=== PATIENT | female | born 1960 | race Caucasian/White ===

== ENCOUNTER 2016-10-05 09:04 | Inpatient (IN) | payer MEDICARE, BC ==
[~2016-10-05] VITALS: Ht 170.2 cm; Wt 123.3 kg
[2016-10-05] MEDS ORDERED: VITA100018 PO (09:33)
[2016-10-05] MEDS ORDERED: BOSW5TAB PO (09:33)
[2016-10-05] MEDS ORDERED: VERA1TAB17 PO (09:33)
[2016-10-05] MEDS ORDERED: LOSA100T2 PO (09:33)
[2016-10-05] MEDS ORDERED: GABA300C5 PO (09:33)
[2016-10-05] MEDS ORDERED: ALPR0.25 PO (09:33)
[2016-10-05] MEDS ORDERED: MULT1TAB PO (09:33)
[2016-10-05] MEDS ORDERED: BUPR300T PO (09:33)
[2016-10-13] MEDS ORDERED: GABA300C5 PO (05:43)
[2016-10-13 05:44] VITALS: BP 153/93; PULSE 87; RESP 20; TEMP 98.5; O2SAT 96
[2016-10-13] MEDS ORDERED: TRANEXAMIC ACID IV SCH ×4 (05:45)
[2016-10-13] MEDS ORDERED: ceFAZolin 2 GM PREMIX 50 ML IV SCH (05:45)
[2016-10-13] MEDS ORDERED: SODIUM CHLORIDE 0.9% IV SCH ×4 (05:45)
[2016-10-13] MEDS: EXPAREL PERI-ARTICULAR INJECTION (TOTAL VOL. 100 ML) P-ARTICULR SCH ×4 (05:45→07:28)
[2016-10-13] MEDS: CHLORHEXIDINE GLUCONATE 4% SOLN 120 ML BTL TOP SCH (05:45)
[2016-10-13] MEDS ORDERED: TRANEXAMIC ACID INJ 1,230 MG in SODIUM CHLORIDE 0.9% INJ 100 ML IV SCH (05:49)
[2016-10-13] MEDS: LACTATED RINGER'S 1000 ML IV SCH (05:51)
[2016-10-13] MEDS ORDERED: GENTAMICIN SULFATE 80 MG/2 ML VIAL ONE ×2 (05:56)
[2016-10-13] MEDS ORDERED: METOPROLOL TARTRATE 25 MG TAB PO PRN (06:00)
[2016-10-13] MEDS: TRANEXAMIC ACID INJ 1,230 MG in SODIUM CHLORIDE 0.9% INJ 100 ML IV SCH ×2 (06:00→07:13)
[2016-10-13] MEDS: SODIUM CHLORID 0.9% 500 ML IV SCH ×2 (06:00→22:40)
[2016-10-13] MEDS ORDERED: INSULIN HUMAN REGULAR 1,000 UNITS/10 ML VIAL SQ PRN (06:00)
[2016-10-13] MEDS ORDERED: MIDAZOLAM HCL 5 MG/5 ML VIAL ONE (06:26)
[2016-10-13] MEDS ORDERED: ZOLPIDEM TARTRATE 5 MG TAB PO PRN (07:00)
[2016-10-13] MEDS ORDERED: MORPHINE SULFATE 4 MG/ML INJ IV PUSH PRN (07:00)
[2016-10-13] MEDS ORDERED: TRANEXAMIC ACID INJ 0 MG in SODIUM CHLORIDE 0.9% INJ 100 ML IV SCH (07:00)
[2016-10-13] MEDS ORDERED: ONDANSETRON HCL 4 MG/2 ML VIAL IVP PRN (07:00)
[2016-10-13] MEDS ORDERED: MAGNESIUM HYDROXIDE SUSP 30 ML CUP PO PRN (07:00)
[2016-10-13] MEDS ORDERED: GENTAMICIN SULFATE 80 MG/2 ML VIAL IRRIGATION ONE (07:28)
[2016-10-13] MEDS: VERAPAMIL HCL 240 MG SUSTAINED RELEASE TAB PO SCH (09:00)
[2016-10-13] MEDS: ALPRAZolam 0.25 MG TAB PO SCH (09:00)
[2016-10-13] MEDS ORDERED: NON-FORMULARY DRUG (Losartan-Hydrochlorothiazide 1 TAB) PO SCH (09:00)
[2016-10-13] MEDS: SODIUM CHLORIDE 0.9% FLUSH 5 ML FLUSH IVF SCH ×2 (09:00→23:30)
[2016-10-13] MEDS: MULTIVITAMIN HEMATINIC THERAPEUTIC TAB PO SCH (09:00)
[2016-10-13] MEDS ORDERED: [UNRECOGNIZED DRUG - OTHER] PO SCH (09:00)
[2016-10-13] MEDS ORDERED: PROPOFOL 200 MG/20 ML AMP IV ONE (09:12)
[2016-10-13] MEDS ORDERED: ONDANSETRON HCL 4 MG/2 ML VIAL IV PUSH ONE (09:12)
[2016-10-13] MEDS ORDERED: ePHEDrine/NS 25 MG/5 ML SYR IV ONE (09:12)
[2016-10-13] MEDS ORDERED: Post-op Orders (for Pharmacy) MISC XX ONE (09:45)
[2016-10-13] MEDS ORDERED: fentaNYL CITRATE 250 MCG/5 ML AMP ONE (09:47)
[2016-10-13] MEDS ORDERED: *morphine SULFATE 8 MG/ML PERIprocedure ONLY ONE ×3 (09:48→10:33)
[2016-10-13] MEDS: KETOROLAC TROMETHAMINE 30 MG/ML (IVP) VIAL IVP SCH ×3 (10:00→23:27)
[2016-10-13] MEDS: LACTATED RINGER'S 1000 ML INJ 1,000 ML IV SCH ×2 (10:20→21:30)
--- NOTE | 2016-10-13 10:26 | RADRPT ---
EXAM DATE/TIME: 10/13/2016 09:49 [place] COMPARISON: No previous studies available for comparison. INDICATIONS : Posst op left knee surgery MEDICAL HISTORY : None. SURGICAL HISTORY : None. ENCOUNTER: Initial ACUITY: 1 day PAIN SCORE: Non-responsive. LOCATION: Left knee FINDINGS: Two view examination of the left knee demonstrates no evidence of fracture or dislocation. Left knee arthroplasty. Apparent surgical drain. No hardware loosening. Bony mineralization is normal. The baig prapatellar soft tissues have a normal configuration. CONCLUSION: Left knee arthroplasty. Guido Martin MD on October 13, 2016 at 10:24 Board Certified Radiologist. This report was verified electronically.
[2016-10-13 12:00] VITALS: BP 118/73; PULSE 73; RESP 19; TEMP 97; O2SAT 95
--- NOTE | 2016-10-13 13:43 | PD.CONS ---
HPI Service [facility] Consult Requested By Dr. Navarro Reason for Consult Medical management Primary Care Physician Mauricio Adame M.D. Diagnoses: History of Present Illness This is a very pleasant 48-year-old male with past medical history hypertension , presented to same day surgery for left knee surgery by Dr. Navarro. Patient says her pain is controlled. Chest pain, shortness of breath, nausea, vomiting, diarrhea or constipation. Review of Systems 12 system ROS reviewed and negative except as mentioned in HPI Past Family Social History Allergies: Coded Allergies: Codeine (Unverified Allergy, Severe, CHEST PAIN, 10/13/16) Past Medical History Hypertension Neuropathy OA Past Surgical History Surgery right knee surgery Reported Medications Reported Meds & Active Scripts Active Reported Gabapentin 300 Mg Cap 900 Mg PO HS Osteo Bi-Flex One A Day (Liscsaiot-Rmevuveclbv-Mzzuffa) 1 Tab 2 Tab PO DAILY Centrum Silver Adult 50+ (Multiple Vitamins W/ Minerals) 1 Tab Tab 1 Tab PO DAILY Vitamin D3 (Cholecalciferol) 1,000 Unit Tab 1,000 Units PO DAILY Gabapentin 300 Mg Cap 600 Mg PO DAILYAC Losartan-Hydrochlorothiazide 100-25 Mg Tab 1 Tab PO DAILY Verapamil ER 24 HR (Verapamil HCl) 240 Mg Tab 240 Mg PO DAILY Bupropion HCl ER 24 HR (Bupropion HCl) 300 Mg Tab 300 Mg PO DAILY Alprazolam 0.25 Mg Tab 0.25 Mg PO DAILY Family History Father cancer unspecified primary with mets Mother Br Ca . [place] at 73 ya. Social History Denies EtOH, tobacco use, or illicit drug use. Physical Exam Vital Signs Vital Signs Date Time Temp Pulse Resp B/P Pulse Ox O2 Delivery O2 Flow Rate FiO2 10/13/16 10:45 98.2 72 15 124/74 97 Nasal Cannula 2 10/13/16 10:30 73 16 120/78 97 Nasal Cannula 2 10/13/16 10:15 75 16 118/80 97 Nasal Cannula 2 10/13/16 10:00 72 15 119/75 98 Nasal Cannula 2 10/13/16 09:45 73 15 116/74 95 Nasal Cannula 2 10/13/16 09:40 98.1 78 15 125/77 99 Nasal Cannula 2 10/13/16 06:45 77 14 125/76 96 10/13/16 06:36 75 14 111/70 94 10/13/16 06:30 84 14 150/85 94 2/21/17 06:12 82 16 149/94 96 10/13/16 06:12 96 Nasal Cannula 3 10/13/16 05:44 98.5 87 20 153/93 96 Physical Exam GENERAL: This is a well-nourished, well-developed patient, in no apparent distress. SKIN: No rashes, ecchymoses or lesions. Cool and dry. HEAD: Atraumatic. Normocephalic. No temporal or scalp tenderness. EYES: Pupils equal round and reactive. Extraocular motions intact. No scleral icterus. No injection or drainage. ENT: Nose without bleeding, purulent drainage or septal hematoma. Throat without erythema, tonsillar hypertrophy or exudate. Uvula midline. Airway patent. NECK: Trachea midline. No JVD or lymphadenopathy. Supple, nontender, no meningeal signs. CARDIOVASCULAR: Regular rate and rhythm without murmurs, gallops, or rubs. RESPIRATORY: Clear to auscultation. Breath sounds equal bilaterally. No wheezes , rales, or rhonchi. GASTROINTESTINAL: Abdomen soft, non-tender, nondistended. No hepato-splenomegaly , or palpable masses. No guarding. MUSCULOSKELETAL: Left knee wrapper after surgery 10/13. Neurovascular intact. Extremities without clubbing, cyanosis, or edema. No joint tenderness, effusion , or edema noted. No calf tenderness. Negative Homans sign bilaterally. NEUROLOGICAL: Awake and alert. Cranial nerves II through XII intact. Motor and sensory grossly within normal limits. Five out of 5 muscle strength in all muscle groups. Normal speech. Laboratory Laboratory Tests Test 10/13/16 05:40 Blood Type O POSITIVE Antibody Screen NEGATIVE Imaging Last Impressions Knee X-Ray 10/13/16 0000 Signed Impressions: Service Date/Time: Thursday, October 13, 2016 09:49 - CONCLUSION: Left knee arthroplasty. Guido Martin MD Assessment and Plan Assessment and Plan Severe posterior arthritis. Status post left knee arthroplasty by Dr. Miranda. Continue management per surgeon The medications per pain scale. Antiemetics laxatives as need. Chronic medical problems hypertension, neuropathy. Stable. Monitor vital signs. Resume home medications. Stable. Continue home medications. Monitor vital signs. Hospitalist will sign off at this time. Thank you for this consultation. Discussed Condition With patient, nurse, family at bedside Carrie Valenzuela MD Oct 13, 2016 13:43
[2016-10-13 16:00] VITALS: BP_SYST 119; BP_DIAS 67; BP_DIAS 72; PULSE 80; PULSE 81; RESP 18; TEMP 96.1; TEMP 96.7; O2SAT 95; O2SAT 99
--- NOTE | 2016-10-13 17:10 | HHI.FF ---
Face to Face Verification Diagnosis: (1) Status post total left knee replacement Physical Therapy Gait training Knee: Total knee, Protocol: Left, Gait training, Full weight bearing Left LE Weight Bearing: WB as tolerated Left LE Range of Motion: Active ROM (AROM, AAROM, PROM, PRE. ROM goal is 0 to 130 degrees. ROM in the OR was 0 to 135 degrees.) Nursing Nursing: Dressing changes Dressing Changes: Daily dressing change, Coverderm/Primapore Additional Instructions Remove steristrips on postop day 14. I have seen patient Cely Coulter on 10/13/16. My clinical findings support the need for the requested home health care services because: Ltd mobility - disease progression Limited ability to care for self High risk of falls I certify that my clinical findings support that this patient is homebound because: Post-op weakness Unsteady gait/balance Unsafe to leave home unassisted Marie Navarro MD (Charles) Oct 13, 2016 17:10
[2016-10-13 20:08] VITALS: BP 128/64; PULSE 92; RESP 19; TEMP 97.1; O2SAT 98
[2016-10-13] MEDS: buPROPion HCL 150 MG SUSTAINED RELEASE TAB PO SCH (21:00)
[2016-10-13] MEDS: SENNOSIDES 8.6 MG TAB PO SCH (23:27)
[2016-10-13] MEDS: GABAPENTIN 300 MG CAP PO SCH (23:28)
[2016-10-13] MEDS: MAGNESIUM HYDROXIDE SUSP 30 ML CUP PO SCH (23:30)
[2016-10-14 00:21] VITALS: BP 134/63; PULSE 102; RESP 20; TEMP 97.6; O2SAT 99
[2016-10-14] MEDS: KETOROLAC TROMETHAMINE 30 MG/ML (IVP) VIAL IVP SCH ×4 (04:00→20:23)
[2016-10-14 04:19] VITALS: BP 123/63; PULSE 99; RESP 19; TEMP 97.3; O2SAT 98
[2016-10-14] MEDS: ACETAMINOPHEN/HYDROcodone 325 MG/7.5 MG TAB PO PRN ×4 (05:45→15:34)
[2016-10-14] MEDS: CHLORHEXIDINE GLUCONATE 4% SOLN 120 ML BTL TOP SCH (05:45)
[2016-10-14] MEDS: LACTATED RINGER'S 1000 ML IV SCH (06:00)
--- NOTE | 2016-10-14 06:52 | PD.ORT.PN ---
Subjective Post Op Day #: 1 Subjective Remarks She is doing well. There is not much pain. She was OOB with PT. Range of Motion 0 to 89 degrees. Distance Walked 35 feet. Objective Vitals Vital Signs Date Time Temp Pulse Resp B/P Pulse Ox O2 Delivery O2 Flow Rate FiO2 10/14/16 04:19 97.3 99 19 123/63 98 10/14/16 00:21 97.6 102 20 134/63 99 10/13/16 20:08 97.1 92 19 128/64 98 10/13/16 16:00 96.7 80 18 119/72 99 10/13/16 12:00 97.0 73 19 118/73 95 10/13/16 10:45 98.2 72 15 124/74 97 Nasal Cannula 2 10/13/16 10:30 73 16 120/78 97 Nasal Cannula 2 10/13/16 10:15 75 16 118/80 97 Nasal Cannula 2 10/13/16 10:00 72 15 119/75 98 Nasal Cannula 2 10/13/16 09:45 73 15 116/74 95 Nasal Cannula 2 10/13/16 09:40 98.1 78 15 125/77 99 Nasal Cannula 2 I/O 10/13/16 10/13/16 10/13/16 10/14/16 10/14/16 10/14/16 07:00 15:00 23:00 07:00 15:00 23:00 Intake Total 2728 ml 240 ml Output Total 1950 ml 150 ml 80 ml Balance 778 ml 90 ml -80 ml Intake Oral 240 ml 240 ml IV Total 888 ml Other 1600 ml Output Urine Total 1550 ml Drainage Total 50 ml 150 ml 80 ml Estimated Blood Loss 350 ml # Voids 2 # Bowel Movements 0 0 Imaging Knee x-ray looks good. Last 72 hours Impressions Knee X-Ray 10/13/16 0000 Signed Impressions: Service Date/Time: Thursday, October 13, 2016 09:49 - CONCLUSION: Left knee arthroplasty. Guido Martin MD Objective Remarks She is resting comfortably, supine in bed in the C[facility]. The dressing is dry and intact. The neurovascular status is intact. Assessment & Plan Ortho Post Op Day #: 1 Problem List: (1) Status post total left knee replacement Plan: Continue postop care and PT. Assessment and Plan Orthopaedically stable. Condition: Good. DVT prophylaxis: GONZÁLEZ stockings, sequentials, ASA. Discharge plans: Home with [facility]. Has appointment. Marie Navarro MD (Charles) Oct 14, 2016 06:52
[2016-10-14 07:01] LABS: HEMATOCRIT 33.1 % (35.0-46.0); REVIEW FLAG FINAL
[2016-10-14 07:55] VITALS: BP 127/68; PULSE 96; RESP 18; TEMP 97.3; O2SAT 94
--- NOTE | 2016-10-14 08:12 | MP ---
cc: Gwendolyn GALDAMEZ. DATE OF SURGERY 10/13/2016 PREOPERATIVE DIAGNOSIS Primary osteoarthritis left knee. POSTOPERATIVE DIAGNOSIS Primary osteoarthritis left knee. OPERATION PERFORMED Left total knee arthroplasty using a [employer] Triathlon prosthesis (uncemented). SURGEON Marie Galdamez MD CIGAR HEAD HOLER MY [place] ANESTHESIA General endotracheal with supplemental adductor canal block and local. INDICATIONS AND FINDINGS This 56-year-old woman has had longstanding pain in her left knee going back to at least 2006. More recently she has had progressive increase in pain so that she has difficulty with walking and has increased pain on ambulation. She has pain on weightbearing. She has relief when limited weightbearing. Ambulation tolerance is two blocks. She has used nonsteroidal anti-inflammatory agents, activity modification, exercise, ambulatory aids and analgesics without any improvement. Physical findings showed laxity in the medial compartment with tenderness particularly in the medial compartment. There was crepitation on motion with some limitation of motion. She had an antalgic gait. X-rays showed significant arthritis in the knee going to [id number] in the medial compartment with osteophytes. That were tricompartmental. Operative findings showed severe osteoarthritis particularly in the medial compartment and also in the lateral and patellofemoral compartments with tricompartmental osteophytes and eburnation. PROSTHESIS USED Baldwin Triathlon prosthesis. This was an uncemented prosthesis with the femur being a size 5 left cruciate retaining, the tibia being a Tritanium baseplate, also Triathlon size 5 with an 11-mm cruciate-retaining spacer and a 35-mm asymmetric patella size 35-mm. PROCEDURE The patient had an adductor canal block carried out preoperatively. She was transferred to the clean-air operating suite where a general anesthetic was administered. She was placed in a supine position on the operating table with a bolster under the left hip. Pneumatic tourniquet was applied to the left thigh. The limb was then prepped with alcohol, Hibiclens and Chloraprep and draped in the usual manner with the knee draped free. She received prophylactic antibiotic in the form of Ancef according to protocol on arrival in the operating room. She also received tranexamic acid. After appropriate prep and drape, appropriate time-out procedure was carried out. Local anesthesia was administered into the knee with Exparel. An incision was then made from about three fingerbreadths above the superior and medial pole of the patella down to the tibial tubercle. The incision was deepened through the subcutaneous tissues to the retinaculum. Medial retinacular incision was then made from the superior medial pole of the patella down to the tibial tubercle and up into the quadriceps tendon splitting it longitudinally in the medial one-third. The patella was reflected. Medial and lateral dissection was carried out. The infrapatellar fat pad was debulked. The posterior surface of the patella was excised with the oscillating saw. The patella protector was applied. The patella was slipped into the lateral gutter. A fenestration was made in the distal end of the femur with the appropriate drill. This was also made into the tibia for intermedullary referencing guide. Osteophytes were trimmed. The distal femoral cutting guide and jig were assembled for 5-degree, 8-mm cut. The cutting block was stabilized with pins. The jig was removed. The distal femoral cut was completed with the oscillating saw. The sizing guide was positioned in place and stabilized with pins. This was positioned according to Whitesides line and the epicondylar axis. The size was determined to be a size 5. The four-in-one cutting block was positioned in place and anterior and posterior cuts were made followed by posterior and anterior chamfer cuts. Further osteophyte trimming was carried out. The proximal tibia was exposed. Medial and lateral meniscectomies were completed. Osteophytes were trimmed from the tibia. The cutting block was then positioned for appropriate rotation and stabilized with a pin. The jig was positioned for appropriate rotation and stabilized with a pin. The proximal tibial cutting guide was then positioned with the stylus off the lateral side. The cutting block was stabilized with pins. The jig was removed. The depth of cut was verified with the spacer block. The osteophytes were trimmed from the tibia. The proximal tibia was then resected with the oscillating saw, taking care to prevent injury to neurovascular and ligamentous structures. After removal of a portion of the cutting block, the spacer block was adjusted to verify depth of cut. A size 5 tibial baseplate was chosen. An 11-mm spacer was chosen. Osteophytes were trimmed from the posterior femur. Local anesthesia was administered again in the posterior capsule and throughout the knee with marked with Exparel. The distal the tibial baseplate trial was positioned in place. The femoral trial was positioned in place and adjusted accordingly. This was then seated. The tibia was then stabilized with pins. The patella drill holes were made. The patella trial prosthesis was positioned. The knee was taken through a range of motion which was easily 0 degrees extension to 135 degrees of flexion by gravity. The stability was excellent and the tracking was excellent. The femoral drill holes were made. The femoral and patella trials were removed. The tibial spacer was removed. The tibial punch was impacted after placement of bone plug into the proximal tibia. The bone plug had already been placed into the femur. The cut ends of bone were then cleaned with pulse lavage. The tibial baseplate was impacted into place and seated appropriately. The spacer was inserted. The femoral component was then impacted into place and seated appropriately. The patella was then positioned in place and seated with the patella vice. Drains were brought out the superolateral aspect of the suprapatellar pouch. The remainder of the local anesthetic was then injected. The knee was then closed in layers using 0 Vicryl interrupted [id number] sutures for retinacular capsular structures, 2-0 Vicryl interrupted simple sutures with buried knots for the subcutaneous tissues and 4-0 Monocryl continuous subcuticular closure for the skin. The wound was dressed with Steri-Strips followed by dry dressing, sterile Sof-Rol, cooling pad, further sterile Sof-Rol and Gilberto bandage from base of the toe to mid-thigh. She was transferred to the recovery room in satisfactory condition having tolerated procedure well. COUNTS Correct. SPECIMENS None. ESTIMATED BLOOD LOSS 400 mL. MD DEANNA Reddy/BOB /9:20 AM /7:44 AM
[2016-10-14] MEDS: SODIUM CHLORIDE 0.9% FLUSH 5 ML FLUSH IVF SCH ×2 (08:19→20:25)
[2016-10-14] MEDS: GABAPENTIN 300 MG CAP PO SCH ×2 (08:19→20:24)
[2016-10-14] MEDS: LOSARTAN 50 MG TAB PO SCH (08:20)
[2016-10-14] MEDS: MAGNESIUM HYDROXIDE SUSP 30 ML CUP PO SCH ×2 (08:21→20:23)
[2016-10-14] MEDS: VERAPAMIL HCL 240 MG SUSTAINED RELEASE TAB PO SCH (08:21)
[2016-10-14] MEDS: MULTIVITAMIN HEMATINIC THERAPEUTIC TAB PO SCH (08:21)
[2016-10-14] MEDS: buPROPion HCL 150 MG SUSTAINED RELEASE TAB PO SCH ×2 (08:21→20:24)
[2016-10-14] MEDS: CHOLECALCIFEROL (VIT D3) 1000 UNIT TAB PO SCH (08:21)
[2016-10-14] MEDS: HYDROCHLOROTHIAZIDE 25 MG TAB PO SCH (08:21)
[2016-10-14] MEDS: ALPRAZolam 0.25 MG TAB PO SCH (08:22)
[2016-10-14] MEDS: ASPIRIN EC 81 MG TABEC PO SCH ×2 (08:27→20:24)
[2016-10-14 08:53] VITALS: O2SAT 93
[2016-10-14] MEDS: SODIUM CHLORIDE 0.9% FLUSH 5 ML FLUSH IVF PRN ×2 (09:04→15:18)
[2016-10-14] MEDS: LACTATED RINGER'S 1000 ML INJ 1,000 ML IV SCH ×2 (09:04→22:30)
[2016-10-14 12:00] VITALS: BP 120/74; PULSE 84; RESP 18; TEMP 98; O2SAT 96
[2016-10-14] MEDS: SENNOSIDES 8.6 MG TAB PO SCH (20:24)
[2016-10-14] MEDS: DOCUSATE SODIUM 100 MG CAP PO SCH (20:24)
[2016-10-14 20:45] VITALS: BP 106/59; PULSE 80; RESP 19; TEMP 96; O2SAT 98
[2016-10-15 00:29] VITALS: BP 115/50; PULSE 80; RESP 18; TEMP 96.4; O2SAT 97
[2016-10-15] MEDS: KETOROLAC TROMETHAMINE 30 MG/ML (IVP) VIAL IVP SCH (03:36)
[2016-10-15] MEDS: ACETAMINOPHEN/HYDROcodone 325 MG/7.5 MG TAB PO PRN ×4 (03:53→18:03)
[2016-10-15 04:25] VITALS: BP 148/68; PULSE 88; RESP 18; TEMP 98.6; O2SAT 97
[2016-10-15] MEDS: CHLORHEXIDINE GLUCONATE 4% SOLN 120 ML BTL TOP SCH (05:45)
[2016-10-15] MEDS: LACTATED RINGER'S 1000 ML IV SCH (06:00)
[2016-10-15 06:57] LABS: HEMATOCRIT 32.6 % (35.0-46.0); REVIEW FLAG FINAL
--- NOTE | 2016-10-15 07:20 | PD.ORT.PN ---
Subjective Post Op Day #: 2 Subjective Remarks She is doing relatively well. There is some pain. She was OOB with PT. Range of Motion 0 to 92 degrees. Distance Walked 20+50 feet in AM; 80 feet in PM with PT. Objective Vitals Vital Signs Date Time Temp Pulse Resp B/P Pulse Ox O2 Delivery O2 Flow Rate FiO2 10/15/16 04:25 98.6 88 18 148/68 97 10/15/16 00:29 96.4 80 18 115/50 97 10/14/16 21:23 20 10/14/16 20:45 96.0 80 19 106/59 98 10/14/16 12:00 98.0 84 18 120/74 96 10/14/16 08:53 93 10/14/16 07:55 97.3 96 18 127/68 94 I/O 10/14/16 10/14/16 10/14/16 10/15/16 10/15/16 10/15/16 07:00 15:00 23:00 07:00 15:00 23:00 Intake Total 360 ml 720 ml 480 ml 480 ml Output Total 80 ml 110 ml 100 ml Balance 280 ml 610 ml 480 ml 380 ml Intake Oral 360 ml 720 ml 480 ml 480 ml Drainage Total 80 ml 110 ml 100 ml # Voids 2 3 3 3 # Bowel Movements 0 0 0 0 Result Diagram: 10/15/16 0603 Imaging Knee x-ray looks good. Last 72 hours Impressions Knee X-Ray 10/13/16 0000 Signed Impressions: Service Date/Time: Thursday, October 13, 2016 09:49 - CONCLUSION: Left knee arthroplasty. Guido Martin MD Objective Remarks She is resting comfortably, supine in bed in the [facility]. The dressing is dry and intact. The neurovascular status is intact. Assessment & Plan Ortho Post Op Day #: 2 Problem List: (1) Status post total left knee replacement Plan: Continue postop care and PT. Assessment and Plan Orthopaedically stable. Condition: Good. DVT prophylaxis: GONZÁLEZ stockings, sequentials, ASA. Discharge plans: Home with [facility], today or tomorrow, depending upon how she does today. Has appointment. Rx: Norco7.5/325 Marie Navarro MD (Charles) Oct 15, 2016 07:20
[2016-10-15] MEDS ORDERED: ASPI81TA11 PO (07:36)
[2016-10-15] MEDS ORDERED: HYDR-3580 PO (07:36)
[2016-10-15 08:00] VITALS: BP 125/73; PULSE 92; RESP 18; TEMP 97.5; O2SAT 99
[2016-10-15] MEDS: DOCUSATE SODIUM 100 MG CAP PO SCH ×2 (08:38→20:03)
[2016-10-15] MEDS: MAGNESIUM HYDROXIDE SUSP 30 ML CUP PO SCH ×2 (08:38→20:03)
[2016-10-15] MEDS: GABAPENTIN 300 MG CAP PO SCH ×2 (08:38→20:02)
[2016-10-15] MEDS: SODIUM CHLORIDE 0.9% FLUSH 5 ML FLUSH IVF SCH ×2 (08:38→20:04)
[2016-10-15] MEDS: MULTIVITAMIN HEMATINIC THERAPEUTIC TAB PO SCH (08:39)
[2016-10-15] MEDS: HYDROCHLOROTHIAZIDE 25 MG TAB PO SCH (08:39)
[2016-10-15] MEDS: LOSARTAN 50 MG TAB PO SCH (08:39)
[2016-10-15] MEDS: CHOLECALCIFEROL (VIT D3) 1000 UNIT TAB PO SCH (08:39)
[2016-10-15] MEDS: ASPIRIN EC 81 MG TABEC PO SCH ×2 (08:40→20:02)
[2016-10-15] MEDS: VERAPAMIL HCL 240 MG SUSTAINED RELEASE TAB PO SCH (08:40)
[2016-10-15] MEDS: ALPRAZolam 0.25 MG TAB PO SCH (08:40)
[2016-10-15] MEDS: buPROPion HCL 150 MG SUSTAINED RELEASE TAB PO SCH ×2 (09:33→20:02)
[2016-10-15] MEDS: LACTATED RINGER'S 1000 ML INJ 1,000 ML IV SCH (11:00)
[2016-10-15 12:00] VITALS: BP 112/62; PULSE 76; RESP 18; TEMP 96.9; O2SAT 96
[2016-10-15 16:00] VITALS: BP 125/69; PULSE 83; RESP 18; TEMP 96.7; O2SAT 98
[2016-10-15 20:00] VITALS: BP 123/60; PULSE 90; RESP 20; TEMP 98.2; O2SAT 96
[2016-10-15] MEDS: SENNOSIDES 8.6 MG TAB PO SCH (20:02)
[2016-10-16] VITALS: BP 120/84; PULSE 83; RESP 18; TEMP 97.3; O2SAT 96
[2016-10-16 04:00] VITALS: BP 131/77; PULSE 84; RESP 20; TEMP 98.2; O2SAT 97
--- NOTE | 2016-10-16 07:14 | PD.ORT.PN ---
Subjective Post Op Day #: 3 Subjective Remarks She is doing well. There is somewhat less pain. She went to class. Range of Motion 0 to 90 degrees. Distance Walked 100 feet. Objective Vitals Vital Signs Date Time Temp Pulse Resp B/P Pulse Ox O2 Delivery O2 Flow Rate FiO2 10/16/16 04:00 98.2 84 20 131/77 97 10/16/16 00:00 97.3 83 18 120/84 96 10/15/16 20:00 98.2 90 20 123/60 96 10/15/16 16:00 96.7 83 18 125/69 98 10/15/16 12:00 96.9 76 18 112/62 96 10/15/16 08:00 97.5 92 18 125/73 99 I/O 10/15/16 10/15/16 10/15/16 10/16/16 10/16/16 10/16/16 07:00 15:00 23:00 07:00 15:00 23:00 Intake Total 480 ml 960 ml 720 ml 240 ml Output Total 100 ml 60 ml Balance 380 ml 900 ml 720 ml 240 ml Intake Oral 480 ml 960 ml 720 ml 240 ml Drainage Total 100 ml 60 ml # Voids 3 3 3 2 # Bowel Movements 0 2 1 0 Result Diagram: 10/15/16 0603 Imaging Knee x-ray looks good. Last 72 hours Impressions Knee X-Ray 10/13/16 0000 Signed Impressions: Service Date/Time: Thursday, October 13, 2016 09:49 - CONCLUSION: Left knee arthroplasty. Guido Martin MD Objective Remarks She is OOB in the chair, dressed and ready to go home. The dressing is dry and intact. The neurovascular status is intact. Assessment & Plan Ortho Post Op Day #: 3 Problem List: (1) Status post total left knee replacement Plan: Continue postop care and PT. Discussed wound care, [facility], home therapy. Assessment and Plan Orthopaedically stable. Condition: Good. DVT prophylaxis: GONZÁLEZ stockings, sequentials, ASA. Discharge plans: Home with [facility], today after PT. Has appointment. Rx: Norco7.5/325 Marie Navarro MD (Charles) Oct 16, 2016 07:14
[2016-10-16 08:00] VITALS: BP_SYST 129; BP_SYST 139; BP_DIAS 78; BP_DIAS 97; PULSE 88; PULSE 89; RESP 17; RESP 18; TEMP 95.6; TEMP 99.5; O2SAT 100; O2SAT 97
[2016-10-16] MEDS: ACETAMINOPHEN/HYDROcodone 325 MG/7.5 MG TAB PO PRN ×2 (08:38→12:23)
[2016-10-16] MEDS: MULTIVITAMIN HEMATINIC THERAPEUTIC TAB PO SCH (08:39)
[2016-10-16] MEDS: CHOLECALCIFEROL (VIT D3) 1000 UNIT TAB PO SCH (08:39)
[2016-10-16] MEDS: ALPRAZolam 0.25 MG TAB PO SCH (08:39)
[2016-10-16] MEDS: HYDROCHLOROTHIAZIDE 25 MG TAB PO SCH (08:40)
[2016-10-16] MEDS: buPROPion HCL 150 MG SUSTAINED RELEASE TAB PO SCH (08:40)
[2016-10-16] MEDS: ASPIRIN EC 81 MG TABEC PO SCH (08:40)
[2016-10-16] MEDS: GABAPENTIN 300 MG CAP PO SCH (08:40)
[2016-10-16] MEDS: LOSARTAN 50 MG TAB PO SCH (08:41)
[2016-10-16] MEDS: VERAPAMIL HCL 240 MG SUSTAINED RELEASE TAB PO SCH (08:41)
[2016-10-16] MEDS: SODIUM CHLORIDE 0.9% FLUSH 5 ML FLUSH IVF SCH (08:44)
[2016-10-16] MEDS: MAGNESIUM HYDROXIDE SUSP 30 ML CUP PO SCH (08:44)
[2016-10-16] MEDS: DOCUSATE SODIUM 100 MG CAP PO SCH (08:44)
--- NOTE | 2016-11-18 08:01 | MD ---
cc: Gwendolyn GALDAMEZ. ADMISSION DATE: 10/13/2016 DISCHARGE DATE: 10/16/2016 ADMITTING DIAGNOSIS Primary osteoarthritis, left knee. FINAL DIAGNOSIS Primary osteoarthritis, left knee. OPERATION DURING HOSPITALIZATION Left total knee arthroplasty using [employer] Triathlon prosthesis on 10/13/2016. PRESENT ILLNESS This 56-year-old woman has had longstanding left knee pain for several years which has progressed to the point that she has an ambulation tolerance of two blocks. She has not responded to activity modification, nonsteroidal anti-inflammatory agents, exercise, analgesics and ambulatory aids. She has had pain in the medial compartment with tenderness particularly in the same site with crepitation on motion. X-rays showed significant arthritis going to exposed subchondral bone in the medial compartment with osteophytes that were tricompartmental. HOSPITAL COURSE The patient was admitted on 10/13/2016. After receiving an adductor canal block she was transferred to the clean-air operating suite where she had a left total knee arthroplasty under general endotracheal anesthetic. She tolerated the procedure well. She was transferred to the post-anesthesia care unit where she was started in a continuous passive motion device which she used during the hospitalization while in bed. DVT prophylaxis was initiated with GONZÁLEZ stockings, sequentials and aspirin. She had physical therapy initiated on the day of surgery, walking 35 feet and having a range of motion to 89 degrees. She remained afebrile. Home health arrangements were initiated. On the second postoperative day she had walked 20 feet and then 50 feet in the morning and 80 feet in the afternoon. Range of motion was 0-92 degrees. She was doing very well and remained afebrile. Hemoglobin went to 10.9. Her drain was removed. Dressings were changed. She continued to progress. By the third postoperative day, she was discharged home with home health care. She was given a prescription for [place] 7.5/325 for pain. She will continue aspirin and GONZÁLEZ stockings for DVT prophylaxis. She continued with therapy and was able to walk easily 100 feet and had a range of motion to 90 degrees. MD DEANNA Reddy/CARROL /6:35 PM /7:46 AM
== END 2016-10-16 12:40 | disposition home health service (06) | DRG 470 ==
LOC: HSDI 10-13 05:07 → N06B 10-13 10:54
PROVIDERS: ADMIT Orthopaedic Surgery; ATTEND Orthopaedic Surgery
PROC: 3E0T3CZ (ICD-10-PCS; 2016-10-13)
PROC: 0SRD0JA Replacement of Left Knee Joint with Synthetic Substitute, Uncemented, Open Approach (ICD-10-PCS; principal; 2016-10-13 06:49)
DX: M17.12 Unilateral primary osteoarthritis, left knee (principal); G62.9 Polyneuropathy, unspecified; I10 Essential (primary) hypertension
CPT/HCPCS: 73560; 85014; 85018; 86850; 86900; 86901; 94150; C1776; C9290; J0690; J1580; J1885; J2250; J2270; J2405; J3010; J7120

== ENCOUNTER → 2016-10-05 | Outpatient (CLI) | payer MEDICARE, BC ==
[~2016-10-05] MED LIST: ALPR.25; ALPR0.25 PO; ASPI81TA11 PO; B COTAB3 PO; BIOTCAP PO; BOSW5TAB PO; BUPR300T PO; CALA240T PO; CENTTAB9 PO; CHOL1CAP6 PO; GABA300C3 PO; GABA300C5 PO; HYDR-3580 PO; HYZA100T6 PO; LOSA100T2 PO; METF-324 PO; MISC1TAB9 PO; MULT1TAB PO; PERC5TAB12 PO; TAB-TAB PO; VERA1TAB17 PO; VITA100018 PO; VITA200017 OR
== END ==
LOC: CPRE 08:58
PROVIDERS: ATTEND Orthopaedic Surgery
DX: Z01.818 Encounter for other preprocedural examination (principal); M17.12 Unilateral primary osteoarthritis, left knee